=== PATIENT | female | born 1965 ===

== ENCOUNTER 2023-03-04 13:11 | Emergency (ER) | payer OTHER, SELFPAY ==
--- NOTE | ~2023-03-04 | CT_ITS ---
EXAMINATION: CT ABDOMEN AND PELVIS WITH CONTRAST CLINICAL INFORMATION: Bilateral flank and lower quadrant pain. COMPARISON: None available. TECHNIQUE: Multidetector volumetric images were obtained from the superior aspect of the liver through the pubic symphysis following administration 85 mL of Omnipaque 350 intravenous contrast. Sagittal and coronal reformatted images were obtained on the technologist's workstation. Oral contrast: No This CT examination was performed using dose optimization techniques as appropriate, variously including the following: *Automated exposure control *Adjustment of mA and/or kV according to patient size (this includes techniques or standardized protocols for targeted exams where dose is matched to indication/reason for exam; i.e. extremities or head) *Use of iterative reconstruction technique DLP: 747 mGy-cm FINDINGS: LUNG BASES: The visualized lung bases are unremarkable. LIVER, GALLBLADDER, AND BILIARY TREE: The liver is normal in size, shape, and attenuation. No focal hepatic lesion or biliary ductal dilatation is present. The gallbladder is unremarkable with no evidence of radiopaque gallstones, gallbladder wall thickening, or obvious pericholecystic inflammatory changes. PANCREAS: Unremarkable. SPLEEN: Unremarkable. ADRENAL GLANDS: Unremarkable. KIDNEYS AND URETERS: The kidneys are normal in size, shape, and attenuation. No hydronephrosis, hydroureter, or calculi seen. No perinephric stranding. BLADDER: Unremarkable. GASTROINTESTINAL TRACT: Distended stomach with no focal abnormality. Normal caliber small bowel. No obstruction. Normal appendix. No colonic wall thickening or inflammation. No free air or free fluid. ABDOMINAL WALL: No significant hernia is appreciated. LYMPH NODES: Normal. VASCULAR: Unremarkable. PELVIC VISCERA: The uterus and adnexa are unremarkable. OSSEOUS STRUCTURES: No acute or suspicious osseous abnormality. Mild degenerative changes in the hips. CT/CT abdomen pelvis w IV con IMPRESSION: No acute findings of the abdomen or pelvis. No inflammatory changes. Normal appendix. No hydronephrosis or nephrolithiasis. Fleischner guidelines were followed.
[2023-03-04 14:14] VITALS: BP 120/69; PULSE 63; RESP 16; TEMP 36.7; O2SAT 97; BMI 33.5
--- NOTE | 2023-03-04 14:15 | ED_ITS ---
HPI - General Adult General Chief complaint: Abdominal Pain Stated complaint: Kidney Pain Time Seen by Provider: 03/04/23 20:59 Source: patient Mode of arrival: ambulatory Limitations: no limitations History of Present Illness HPI narrative: Patient comes to the emergency room complaining of 2 months of bilateral flank pain and bilateral lower quadrant pain and suprapubic pain. Patient states the pain is constant and has been present for 2 months. Patient states that when she urinates it nieves. Patient denies very or chills, patient has been on Augmentin for 1 week. Related Data Allergies Allergy/AdvReac Type Severity Reaction Status Date / Time ciprofloxacin [From Cipro] Allergy Unknown Verified 03/04/23 14:18 gabapentin Allergy Unknown Verified 03/04/23 14:18 sulfamethoxazole Allergy Unknown Verified 03/04/23 14:18 [From Bactrim] topiramate Allergy Unknown Verified 03/04/23 14:18 trimethoprim [From Bactrim] Allergy Unknown Verified 03/04/23 14:18 Review of Systems Review of Systems: Constitutional : No Weight loss, No Fever, No Chills, No Night Sweats, No Fatigue, No Malaise ENT/Mouth : No Hearing loss, No Ear Pain, No Nasal Congestion, No Sinus Pain, No Hoarseness, No sore throat, No Rhinorrhea, No Swallowing Difficulty Eyes: No Eye Pain, No Swelling, No Redness, No Foreign Body, No Discharge, No Vision Changes Cardiovascular : No Chest Pain, No SOB, No Dyspnea on Exertion, No Orthopnea, No Edema, No Palpitations Respiratory : No Cough, No Sputum, No Wheezing, No Smoke Exposure, No Dyspnea Gastrointestinal : No Nausea, No Vomiting, No Diarrhea, No Constipation, complaining of chronic bilateral flank pain and chronic bilateral lower quadrant pain for 2 months Genitourinary : no irregular bleeding, complaining of chronic dysuria for 2 months, suprapubic pressure Musculoskeletal : No joint pain, No Myalgias, No Joint Swelling Skin : No Skin Lesions, No rash Neuro : No Weakness, No Numbness, No Paresthesias, No Loss of Consciousness, No Dizziness, No Headache Psych : No Anxiety/Panic, No Depression, No SI/HI/AH/VH, No Social Issues, Heme/Lymph: No Bruising, No Bleeding,No Lymphadenopathy Endocrine : No Polyuria, No Polydipsia, No Temperature Intolerance [facility] Social History Social History Advance Directives: No Advance Directives Information Provided: Yes Physical Exam ED Vital Signs: Vital Signs - 24 hr 03/04/23 14:14 Temperature 98.1 F Pulse Rate 63 Respiratory Rate 16 Blood Pressure 120/69 Pulse Oximetry 97 Oxygen Delivery Method Room Air BMI result Body Mass Index 33.5 Const Other: Appearance: Alert. Oriented X3. No acute distress. Eyes: Pupils equal, round and reactive to light. ENT: Pharynx normal. Neck: Normal inspection. Neck supple. No lymph nodes noted. No crepitus CVS: Normal heart rate and rhythm. Pulses normal. Normal S1 and S2 Respiratory: No respiratory distress. Breath sounds normal. No Wheezing. No rales Abdomen: Soft and nontender. No rigidity. No distention. No CVA tenderness Back: Pain is mostly above the hips in the posterior aspect Skin: Skin warm and dry. Normal skin color. Normal skin turgor. Extremities: No lower extremity edema. No Lacerations. No Rash Neuro: Oriented X 3. No motor deficit. No sensory deficit. Moving all extremities. No slurred speech. CN 2 through 12 grossly intact Psych: calm, cooperative, normal affect Course Course Course Narrative: This is an RME: Additional HPI, ROS, PE not included below will be deferred to primary provider. 57 year old female with a past medical history of nephrolithiasis presenting from pcp with a few weeks of fever, right flank pain, and dysuria. Patient currently taking augmentin without improvement. Expect from [facility] Plan- labs Medications Administered Discontinued Medications Generic Name Dose Route Start Last Admin Trade Name Freq PRN Reason Stop Dose Admin Iohexol 85 ml 03/04/23 21:45 03/04/23 21:46 Iohexol 350 Mg/Ml 100 Ml Infus..Btl IV 03/04/23 21:46 85 ml ONCE ONE Administration Medical Decision Making Medical Decision Making MDM Narrative: -my interpretation of labs, white blood cell count normal, electrolytes normal, LFTs normal, lipase normal, urinalysis negative -patient does have history of kidney stones, will go ahead and order a CT scan. Admission has been considered. -my interpretation of CT scan of the abdomen pelvis no ureterolithiasis, no obstruction, no obvious signs of diverticulitis -discussed with the patient that her chronic back pain of 2 months most likely musculoskeletal. Also discussed that if patient continues having dysuria, she may need a cystoscopy, instructed to follow-up with her PCP and may need referral to urology Differential Diagnosis Differential Diagnoses: The differential diagnosis associated with the presentation includes (Ureterolithiasis, nephrolithiasis, cystitis, py elonephritis) Admission/Observation Consideration of admission/observation: Escalation of care including admission/observation considered Lab Data MDM Lab Attestation statement: I reviewed the patient's lab results. 03/04/23 14:37 03/04/23 14:37 Labs: Lab Results 03/04/23 03/04/23 03/04/23 Range/Units 14:37 14:37 14:37 WBC 6.3 (4.8-10.8) X10*3/uL RBC 4.03 L (4.20-5.50) X10*6/uL Hgb 12.2 (12.0-16.0) g/dl Hct 36.8 L (37.0-47.0) % MCV 91.3 (80.0-98.0) fL MCH 30.3 (27.0-33.0) pg MCHC 33.2 (31.0-35.0) g/dl RDW 12.8 (11.0-16.0) % Plt Count 225 (160-400) X10*3/uL MPV 10.2 (9.4-12.3) fL Immature Gran % (Auto) 0.2 (0.0-0.4) % Neut % (Auto) 52.1 (45-73) % Lymph % (Auto) 34.4 (20-40) % [place] % (Auto) 7.8 (2-11) % Eos % (Auto) 4.9 H (0-4) % Baso % (Auto) 0.6 (0-2) % Lymph # (Auto) 2.2 (1.2-4.9) X10*3/uL [place] # (Auto) 0.5 (0.1-1.2) X10*3/uL Eos # (Auto) 0.3 (0.0-0.4) X10*3/uL Baso # (Auto) 0.0 (0.0-0.2) X10*3/uL Abs Immat Gran (auto) 0.01 (0.00-0.03) X10*3/uL Absolute Neuts (auto) 3.3 (2.0-8.3) x10*3/uL Absolute Nucleated RBC 0.000 (0.0-0.012) X10*3/uL Nucleated RBC % (auto) 0.0 (0.0-0.2) /100WBC Sodium 141 (135-145) mmol/L Potassium 4.1 (3.3-5.1) mmol/L Chloride 107 (96-108) mmol/L Carbon Dioxide 30 H (22-29) mmol/L Anion Gap 8 L (12-20) BUN 18 H (9-16) mg/dL Creatinine 0.70 (0.5-1.4) mg/dL Estim Creat Clear Calc 89.6 Estimated GFR > 60 Random Glucose 105 (60-115) mg/dL Lactic Acid 0.7 (0.5-2.0) mmol/L Calcium 9.5 (8.4-10.2) mg/dL Magnesium 2.3 (1.6-2.6) mg/dL Total Bilirubin 0.2 (0.0-1.0) mg/dL AST 19 (5-31) U/L ALT 18 (0-31) U/L Alkaline Phosphatase 90 (39-117) U/L Total Protein 7.4 (6.5-8.0) g/dL Albumin 4.2 (3.5-5.0) g/dL Lipase 20 (8-78) U/L Urine Color Urine Appearance Urine pH (5.0-9.0) Ur Specific [place] (1.005-1.025) Urine Protein (Neg-Trace) mg/dL Urine Glucose (UA) (Negative) mg/dL Urine Ketones (Negative) mg/dL Urine Blood (Negative) Urine Nitrite (Negative) Ur Leukocyte Esterase (Negative) 03/04/23 Range/Units 14:37 WBC (4.8-10.8) X10*3/uL RBC (4.20-5.50) X10*6/uL Hgb (12.0-16.0) g/dl Hct (37.0-47.0) % MCV (80.0-98.0) fL MCH (27.0-33.0) pg MCHC (31.0-35.0) g/dl RDW (11.0-16.0) % Plt Count (160-400) X10*3/uL MPV (9.4-12.3) fL Immature Gran % (Auto) (0.0-0.4) % Neut % (Auto) (45-73) % Lymph % (Auto) (20-40) % [place] % (Auto) (2-11) % Eos % (Auto) (0-4) % Baso % (Auto) (0-2) % Lymph # (Auto) (1.2-4.9) X10*3/uL [place] # (Auto) (0.1-1.2) X10*3/uL Eos # (Auto) (0.0-0.4) X10*3/uL Baso # (Auto) (0.0-0.2) X10*3/uL Abs Immat Gran (auto) (0.00-0.03) X10*3/uL Absolute Neuts (auto) (2.0-8.3) x10*3/uL Absolute Nucleated RBC (0.0-0.012) X10*3/uL Nucleated RBC % (auto) (0.0-0.2) /100WBC Sodium (135-145) mmol/L Potassium (3.3-5.1) mmol/L Chloride (96-108) mmol/L Carbon Dioxide (22-29) mmol/L Anion Gap (12-20) BUN (9-16) mg/dL Creatinine (0.5-1.4) mg/dL Estim Creat Clear Calc Estimated GFR Random Glucose (60-115) mg/dL Lactic Acid (0.5-2.0) mmol/L Calcium (8.4-10.2) mg/dL Magnesium (1.6-2.6) mg/dL Total Bilirubin (0.0-1.0) mg/dL AST (5-31) U/L ALT (0-31) U/L Alkaline Phosphatase (39-117) U/L Total Protein (6.5-8.0) g/dL Albumin (3.5-5.0) g/dL Lipase (8-78) U/L Urine Color Yellow Urine Appearance Clear Urine pH 5.5 (5.0-9.0) Ur Specific [place] 1.010 (1.005-1.025) Urine Protein Negative (Neg-Trace) mg/dL Urine Glucose (UA) Negative (Negative) mg/dL Urine Ketones Negative (Negative) mg/dL Urine Blood Negative (Negative) Urine Nitrite Negative (Negative) Ur Leukocyte Esterase Negative (Negative) Independent Interpretation I performed an independent interpretation of an: CT Scan Radiology Impression Discussion of test interpretation with radiology: I have reviewed the radiologist's reading. Radiologist Impression: FINDINGS: LUNG BASES: The visualized lung bases are unremarkable.? LIVER, GALLBLADDER, AND BILIARY TREE: The liver is normal in size, shape, and attenuation. No focal hepatic lesion or biliary ductal dilatation is present. The gallbladder is unremarkable with no evidence of radiopaque gallstones, gallbladder wall thickening, or obvious pericholecystic inflammatory changes.? PANCREAS: Unremarkable.? SPLEEN: Unremarkable.? ADRENAL GLANDS: Unremarkable.? KIDNEYS AND URETERS: The kidneys are normal in size, shape, and attenuation. No hydronephrosis, hydroureter, or calculi seen. No perinephric stranding. ? BLADDER: Unremarkable.? GASTROINTESTINAL TRACT: Distended stomach with no focal abnormality. Normal caliber small bowel. No obstruction. Normal appendix. No colonic wall thickening or inflammation. No free air or free fluid.? ABDOMINAL WALL: No significant hernia is appreciated.? LYMPH NODES: Normal. VASCULAR: Unremarkable. PELVIC VISCERA: The uterus and adnexa are unremarkable.? OSSEOUS STRUCTURES: No acute or suspicious osseous abnormality. Mild degenerative changes in the hips.? CT/CT abdomen pelvis w IV con IMPRESSION: No acute findings of the abdomen or pelvis. No inflammatory changes. Normal appendix. No hydronephrosis or nephrolithiasis. ? Fleischner guidelines were followed. Critical Care Time Critical Care Time Critical Care Time: Yes Total Critical Care Time: 45 Attestation: I have personally provided critical care time. Time includes review of lab data, radiology results, discussion with consultants, and monitoring for potential decompensation. Intervention performed as documented. Discharge Plan Discharge Clinical Impression: Chronic lower back pain, Chronic abdominal pain Patient Disposition: Home, Self-Care Instructions: Abdominal Pain (ED), Lower Back Exercises (ED) Additional Instructions: Please follow-up with your primary care physician tomorrow. If you have any worsening or new symptoms, please return to the emergency room or call 911
[2023-03-04 14:45] LABS: MANUAL DIFF FLAG NO
[2023-03-04 14:48] LABS: Appearance Urine Clear; Basophils Percent Auto 0.6 % (0-2); Color Urine Yellow; Eosinophils Absolute Auto 0.3 X10*3/uL (0.0-0.4); Eosinophils Percent Auto 4.9 % (0-4); Glucose Urine UA Negative (Negative); Hematocrit 36.8 % (37.0-47.0); Hemoglobin 12.2 g/dl (12.0-16.0); Imm Gran Abs Auto 0.01 X10*3/uL (0.00-0.03); Imm Gran Pct Auto 0.2 % (0.0-0.4); Leukocyte Esterase Urine Negative (Negative); Lymphocytes Absolute Auto 2.2 X10*3/uL (1.2-4.9); Lymphocytes Percent Auto 34.4 % (20-40); Mean Corpuscular HGB Conc 33.2 g/dl (31.0-35.0); Mean Corpuscular Hemoglobin 30.3 pg (27.0-33.0); Mean Corpuscular Volume 91.3 fL (80.0-98.0); Mean Platelet Volume 10.2 fL (9.4-12.3); Monocytes Absolute Auto 0.5 X10*3/uL (0.1-1.2); Monocytes Percent Auto 7.8 % (2-11); Neutrophils Absolute Auto 3.3 x10*3/uL (2.0-8.3); Neutrophils Percent Auto 52.1 % (45-73); Nitrite Urine Negative (Negative); PH 5.5 (5.0-9.0); Platelet Count 225 X10*3/uL (160-400); Red Blood Count 4.03 X10*6/uL (4.20-5.50); Red Cell Distribution Width 12.8 % (11.0-16.0); Urine Blood Negative (Negative); Urine Ketones Negative (Negative); Urine Protein Negative (Neg-Trace); White Blood Count 6.3 X10*3/uL (4.8-10.8)
[2023-03-04 14:57] LABS: Lactic Acid 0.7 mmol/L (0.5-2.0)
[2023-03-04 15:02] LABS: Alanine Aminotransferase 18 U/L (0-31); Albumin Level 4.2 g/dL (3.5-5.0); Alkaline Phosphatase 90 U/L (39-117); Anion Gap 8 (12-20); Aspartate Amino Transferase 19 U/L (5-31); Bilirubin Total 0.2 mg/dL (0.0-1.0); Blood Urea Nitrogen 18 mg/dL (9-16); Calcium 9.5 mg/dL (8.4-10.2); Carbon Dioxide 30 mmol/L (22-29); Chloride 107 mmol/L (96-108); Creatinine Clr Calc Pharmacy 89.6; Estimated Glomerular Filt Rate > 60; Glucose Random 105 mg/dL (60-115); Lipase 20 U/L (8-78); Magnesium 2.3 mg/dL (1.6-2.6); Potassium 4.1 mmol/L (3.3-5.1); Sodium 141 mmol/L (135-145); Total Protein 7.4 g/dL (6.5-8.0)
[2023-03-04] MEDS: iohexoL 350 MG/ML 100 ML INFUS..BTL 85 ML IV (21:46)
[2023-03-04 22:34] VITALS: BP 117/72; PULSE 63; RESP 18; TEMP 36.7; O2SAT 97
== END 2023-03-04 22:55 | disposition home or self-care (01) ==
PROVIDERS: Physician Assistant; Emergency Provider Emergency Medicine
DX: G89.29 Other chronic pain (principal); M54.50 Low back pain, unspecified; R10.32 Left lower quadrant pain; R10.31 Right lower quadrant pain
CPT/HCPCS: 36415; 74177; 80053; 81003; 83605; 83690; 83735; 85025; 87040; 99283; 99284; Q9967

== ENCOUNTER 2023-05-26 21:39 | Emergency (ER) | payer OTHER, SELFPAY ==
--- NOTE | ~2023-05-26 | XR_ITS ---
EXAMINATION: XR CHEST CLINICAL INFORMATION: Pain. COMPARISON: None available. TECHNIQUE: 2 views of the chest were obtained. FINDINGS: No significant abnormality is noted involving the heart, lungs, mediastinum, bony thorax or soft tissues. XR/XR chest 2V IMPRESSION: Unremarkable examination.
[2023-05-26 21:47] VITALS: BP 135/82; PULSE 71; RESP 16; TEMP 36.7; O2SAT 97; BMI 35.0
[2023-05-26 22:40] LABS: Influenza A PCR NEGATIVE (Negative); Influenza B PCR NEGATIVE (Negative); Resp Syncy Virus RNA Qual PCR NEGATIVE (Negative); SARS COV2 PCR INHOUSE NEGATIVE (Negative)
[2023-05-27] VITALS: BP 128/77; PULSE 82; RESP 20; TEMP 36.8; O2SAT 98
--- NOTE | 2023-05-27 00:15 | ED.GENADULT ---
HPI - General Adult General Chief complaint: Upper Respiratory Symptoms Stated complaint: asthma, congestion,body aches Time Seen by Provider: 05/27/23 00:05 Source: patient Mode of arrival: ambulatory Limitations: no limitations History of Present Illness HPI narrative: 57 year old female with PMH of asthma and pneumonia over 1 year ago presents for chest congestion and URI symptoms x2 days. She states she has had chest congestion/pressure yesterday and pain with inspiration. She states today she now has a sore throat, body aches, chills, sinus pressure, and otalgia. She denies cough or vomiting and diarrhea. 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 She has used her albuterol inhaler 4 times today without relief, she infrequently uses it at baseline. She has a nebulizer machine at home but has not used it. Related Data Previous Rx's Medication Instructions Recorded azithromycin 250 mg tablet See Rx Instructions PO .COMPLEX #6 05/27/23 tabs prednisone 20 mg tablet 40 mg (2 x 20 mg) PO DAILY #10 tabs 05/27/23 Allergies Allergy/AdvReac Type Severity Reaction Status Date / Time ciprofloxacin [From Cipro] Allergy Unknown Verified 05/26/23 21:49 gabapentin Allergy Unknown Verified 05/26/23 21:49 sulfamethoxazole Allergy Unknown Verified 05/26/23 21:49 [From Bactrim] topiramate Allergy Unknown Verified 05/26/23 21:49 trimethoprim [From Bactrim] Allergy Unknown Verified 05/26/23 21:49 Review of Systems Constitutional: Constitutional: Reports chills, Reports fatigue, Denies fever(s), Reports headache(s) and Reports malaise ENT: Reports otalgia, Reports headache(s), Reports nasal discharge, Reports sinus pressure and Reports sore throat Cardiovascular: Cardiovascular: Reports chest pain (chest wall pain), Denies lightheadedness, Denies palpitations and Reports dyspnea Respiratory: Respiratory: Reports chest congestion, Denies cough, Reports excessive phlegm production, Reports dyspnea and Denies wheezing Gastrointestinal: Gastrointestinal: Denies abdominal pain, Denies diarrhea, Reports nausea and Denies vomiting Neurologic: Reports headache(s) Endocrine: Endocrine: Reports fatigue and Denies palpitations Allergic/Immunologic: Allergic/Immunologic: Denies wheezing PMFSH Social History Social History Smoked in Last 30 Days: No Use of substances other than those prescribed or required for medical reasons: No Advance Directives: No Advance Directives Information Provided: Yes Physical Exam ED Vital Signs: Vital Signs - 24 hr 05/26/23 21:47 05/27/23 00:00 Temperature 98.1 F 98.2 F Pulse Rate 71 82 Respiratory Rate 16 20 Blood Pressure 135/82 128/77 Pulse Oximetry 97 98 Oxygen Delivery Method Room Air Room Air BMI result Body Mass Index 35.0 Const General: cooperative and no acute distress Orientation/consciousness: patient oriented x3 Limitations: no limitations HENMT Head: Yes normocephalic and Yes atraumatic Ears: TM's normal bilaterally and EAC's normal General nose exam: Normal external nose present, Normal nares present and Normal nasal mucous membranes and turbinates present Face and sinus: Yes sinus tenderness Mouth: oropharynx normal and moist mucous membranes Throat: Yes tonsils normal, Yes uvula midline and Yes posterior oropharynx abnormal (erythematous) Eyes Conjunctivae: conjunctivae normal Sclerae: sclerae normal Corneas: corneas normal Neck Neck: Yes no lymphadenopathy Resp Effort & Inspection: normal respiratory effort and able to speak in complete sentences Auscultation: clear to auscultation bilaterally Cardio Rate: regular rate Rhythm: regular rhythm GI Inspection: Yes normal to inspection Palpation (GI): Soft to palpation, not firm, nontender, no guarding and not rigid Neuro General: patient oriented x3 Medical Decision Making Medical Decision Making [facility] Narrative: 57-year-old female with past medical history significant for asthma presents for evaluation of respiratory symptoms over the last few days. She is negative for flu, COVID. She would like a strep test and chest x-ray. Though she has clear lungs of still well signs, we will get a chest x-ray per her request. There is no evidence of sepsis Differential Diagnosis Differential Diagnoses: The differential diagnosis associated with the presentation includes viral syndrome influenza covid-19 strep pharyngitis pneumonia bronchitis Lab Data Labs: Lab Results 05/26/23 05/27/23 Range/Units 21:55 01:11 Influenza Type A (PCR) NEGATIVE (Negative) Influenza Type B (PCR) NEGATIVE (Negative) RSV RNA Qual (PCR) NEGATIVE (Negative) SARS-CoV-2 RNA (RT-PCR) NEGATIVE (Negative) S. pyogenes GrpA SANDRA Negative (Negative) Independent Interpretation I performed an independent interpretation of an: Plain X-Ray (No infiltrates) Radiology Impression Discussion of test interpretation with radiology: I have reviewed the radiologist's reading. Radiologist Impression: Unremarkable chest x-ray Discharge Plan Discharge Clinical Impression: Upper respiratory infection Patient Disposition: Home, Self-Care Instructions: Upper Respiratory Infection (ED) Additional Instructions: Your viral swabs and strep swabs were negative. Your chest x-ray did not show any evidence of pneumonia. Take azithromycin and prednisone as directed for upper respiratory infection. Follow-up with your primary doctor Prescriptions: New azithromycin 250 mg tablet See Rx Instructions .ROUTE .COMPLEX Qty: 6 0RF Rx Instructions: For 250 mg dose pack: take 500 mg today (day 1), then 250 mg for 4 days (days 2-5) prednisone 20 mg tablet 40 mg PO DAILY Qty: 10 0RF
[2023-05-27 01:23] LABS: IDNOW Serial# 08D9AD1C; Strep A Nucleic Acid Negative (Negative)
== END 2023-05-27 02:33 | disposition home or self-care (01) ==
PROVIDERS: Physician Assistant; Emergency Provider Student in an Organized Health Care Education/Training Program
DX: J06.9 Acute upper respiratory infection, unspecified (principal); J02.9 Acute pharyngitis, unspecified; J45.909 Unspecified asthma, uncomplicated; M79.10 Myalgia, unspecified site; Z20.822 Contact with and (suspected) exposure to COVID-19; Z20.828 Contact with and (suspected) exposure to other viral communicable diseases; Z79.899 Other long term (current) drug therapy
CPT/HCPCS: 0241U; 71046; 87651; 99283; 99284

== ENCOUNTER 2023-12-06 14:11 | Emergency (ER) | payer OTHER, SELFPAY ==
--- NOTE | ~2023-12-06 | CT_ITS ---
EXAMINATION: CT ABDOMEN AND PELVIS WITHOUT CONTRAST CLINICAL INFORMATION: Dysuria/hematuria with abdominal pain and back pain COMPARISON: CT abdomen pelvis 03/04/2023 TECHNIQUE: Multidetector volumetric imaging was performed from the superior aspect of the liver through the pubic symphysis. Sagittal and coronal reformatted images were obtained on the technologist's workstation. This CT examination was performed using dose optimization techniques as appropriate, variously including the following: *Automated exposure control *Adjustment of mA and/or kV according to patient size (this includes techniques or standardized protocols for targeted exams where dose is matched to indication/reason for exam; i.e. extremities or head) *Use of iterative reconstruction technique DLP: 932 mGy-cm FINDINGS: LUNG BASES: The visualized lung bases are unremarkable. LIVER, GALLBLADDER, AND BILIARY TREE: The liver is normal in size, shape, and attenuation. No focal hepatic lesion or biliary ductal dilatation is present. A tiny punctate calcifications seen near the shakila hepatis possibly a granuloma (3:24). The gallbladder is unremarkable with no evidence of radiopaque gallstones, gallbladder wall thickening, or obvious pericholecystic inflammatory changes. PANCREAS: Unremarkable. SPLEEN: Unremarkable. ADRENAL GLANDS: Unremarkable. KIDNEYS AND URETERS: The kidneys are normal in size, shape, and attenuation. No hydronephrosis, hydroureter, or calculi seen. No perinephric stranding. BLADDER: Unremarkable. GASTROINTESTINAL TRACT: Again seen are scattered colonic diverticula. In the mid sigmoid colon there is an area of pericolonic inflammation and sigmoid thickening consistent with uncomplicated acute sigmoid diverticulitis with no extraluminal air or fluid collections. The small and large bowel are otherwise unremarkable. The appendix is unremarkable. ABDOMINAL WALL: No significant hernia is appreciated. LYMPH NODES: No retroperitoneal lymphadenopathy. VASCULAR: Unremarkable. PELVIC VISCERA: The uterus and adnexa are unremarkable aside from the presence of a tiny punctate calcification in the region of the endometrium in the lower uterine segment.. No free fluid is present in the pelvis OSSEOUS STRUCTURES: Unremarkable. CT/CT abdomen pelvis wo IV con IMPRESSION: Uncomplicated acute sigmoid diverticulitis. Fleischner guidelines were followed.
[2023-12-06 14:24] VITALS: BP 108/70; PULSE 95; RESP 18; TEMP 36.6; O2SAT 95; BMI 35.1
--- NOTE | 2023-12-06 14:28 | ED_ITS ---
HPI - General Adult General Chief complaint: Urogenital-Female Stated complaint: Abdominal Pain Radiating to Back Time Seen by Provider: 12/06/23 17:22 Source: patient Mode of arrival: ambulatory Limitations: no limitations History of Present Illness HPI narrative: 58 yold female with pmh of asthma, kidney stones, and pneumonia presents to the ED for left lower abdominal pain, increase urinary freqeuncy and hematuria. patient states no other complaints. Related Data Previous Rx's ?Medication ?Instructions ?Recorded azithromycin 250 mg tablet See Rx Instructions PO .COMPLEX #6 05/27/23 tabs prednisone 20 mg tablet 40 mg (2 x 20 mg) PO DAILY #10 tabs 05/27/23 amoxicillin 875 mg-potassium 1 tab PO Q12H 5 days #10 tabs 12/06/23 clavulanate 125 mg tablet naproxen 500 mg tablet 500 mg PO BID PRN pain 7 days #14 12/06/23 tabs Allergies Allergy/AdvReac Type Severity Reaction Status Date / Time ciprofloxacin [From Cipro] Allergy Unknown Verified 12/06/23 14:25 gabapentin Allergy Unknown Verified 12/06/23 14:25 sulfamethoxazole Allergy Unknown Verified 12/06/23 14:25 [From Bactrim] topiramate Allergy Unknown Verified 12/06/23 14:25 trimethoprim [From Bactrim] Allergy Unknown Verified 12/06/23 14:25 Review of Systems 2 Review of Systems: abdomnal pain, increae urinary frequency, hematuria, and dysuria Yes all other systems are reviewed and are negative PMFSH Social History Social History Advance Directives: No Advance Directives Information Provided: No Do you have a plan to hurt others: No Plan Physical Exam ED Vital Signs: Vital Signs - 24 hr 12/06/23 14:24 Temperature 97.8 F Pulse Rate 95 Respiratory Rate 18 Blood Pressure 108/70 Pulse Oximetry 95 Oxygen Delivery Method Room Air BMI result Body Mass Index 35.1 Const General: cooperative, healthy appearing, comfortable, no acute distress, well developed, alert, awake and Physically active Orientation/consciousness: oriented to person, oriented to place, oriented to time and patient oriented x3 HENMT Head: Yes normal to inspection, Yes No palpable skull fracture present, Yes normocephalic and Yes atraumatic Eyes General: appearance normal, both eyes and all related structures Neck Neck: Yes normal visual inspection, Yes full ROM, Yes no lymphadenopathy, Yes no meningeal signs, Yes trachea midline, Yes supple, No anterior neck swelling and No tender Chest Chest palpation & inspection: normal inspection of the chest and normal palpation of entire chest wall Resp Effort & Inspection: normal respiratory effort and able to speak in complete sentences Auscultation: clear to auscultation bilaterally Cardio Jugular venous distension: no JVD Heart sounds: S1 normal heart sound present and S2 normal heart sound present GI Inspection: Yes normal to inspection Palpation (GI): Soft to palpation, not firm, Tenderness to palpation present (GI) in the LLQ, no guarding and not rigid General: Yes no CVA tenderness Back/Spine/Pelvis Back: no CVA tenderness and No back tenderness Skin General skin exam: no rashes or lesions noted, elasticity normal and turgor normal Neuro General: oriented to person, oriented to place, oriented to time, patient oriented x3, gait normal, tone normal, moves all extremities, Normal light touch and pain sensation, no meningeal signs, no focal motor deficits, CN's II-XI intact bilaterally and normal sensation to monofilament Extrem General: Yes normal to inspection, Yes full ROM and Yes capillary refill normal Psych Appearance: grossly normal, well kempt and not disheveled Course Course Course Narrative: RME: Triage done by NICKY Prakash 58-year-old female presents to ED for lower abdominal pain with dysuria and hematuria. Patient has history of kidney stones. Positive for left lower quadrant tenderness with left CVA flank. Labs abdominal CT scan UA ordered Medical Decision Making Medical Decision Making MDM Narrative: 58-year-old female presents to ED for back pain, left lower quadrant abdominal pain, increased urinary frequency and slight hematuria. UA came back negative for UTI or blood. Slight elevated white blood cell count. CT scan came back positive for diverticulitis. Patient denied any distress. Patient can be discharged with oral antibiotics. Patient explained worrisome sign and informed to return to the ED if she has them. Differential Diagnosis Differential Diagnoses: The differential diagnosis associated with the presentation includes (Kidney stones, UTI, diverticulitis,) Admission/Observation Consideration of admission/observation: Escalation of care including admission/observation considered Lab Data [facility] Lab Attestation statement: I reviewed the patient's lab results. 12/06/23 14:55 12/06/23 14:55 Labs: Lab Results 05/14/24 Range/Units 14:55 WBC 12.8 H (4.8-10.8) X10*3/uL RBC 3.98 L (4.20-5.50) X10*6/uL Hgb 12.1 (12.0-16.0) g/dl Hct 36.0 L (37.0-47.0) % MCV 90.5 (80.0-98.0) fL MCH 30.4 (27.0-33.0) pg MCHC 33.6 (31.0-35.0) g/dl RDW 12.5 (11.0-16.0) % Plt Count 236 (160-400) X10*3/uL MPV 10.0 (9.4-12.3) fL Immature Gran % (Auto) 0.3 (0.0-0.4) % Neut % (Auto) 75.1 H (45-73) % Lymph % (Auto) 15.4 L (20-40) % [place] % (Auto) 6.9 (2-11) % Eos % (Auto) 1.9 (0-4) % Baso % (Auto) 0.4 (0-2) % Lymph # (Auto) 2.0 (1.2-4.9) X10*3/uL [place] # (Auto) 0.9 (0.1-1.2) X10*3/uL Eos # (Auto) 0.2 (0.0-0.4) X10*3/uL Baso # (Auto) 0.1 (0.0-0.2) X10*3/uL Abs Immat Gran (auto) 0.04 H (0.00-0.03) X10*3/uL Absolute Neuts (auto) 9.6 H (2.0-8.3) x10*3/uL Absolute Nucleated RBC 0.000 (0.0-0.012) X10*3/uL Nucleated RBC % (auto) 0.0 (0.0-0.2) /100WBC Sodium 139 (135-145) mmol/L Potassium 3.9 (3.3-5.1) mmol/L Chloride 103 (96-108) mmol/L Carbon Dioxide 26 (22-29) mmol/L Anion Gap 14 (12-20) BUN 16 (9-16) mg/dL Creatinine 0.70 (0.5-1.4) mg/dL Estim Creat Clear Calc 90.8 Estimated GFR > 60 Random Glucose 104 (60-115) mg/dL Calcium 9.5 (8.4-10.2) mg/dL Total Bilirubin 0.4 (0.0-1.0) mg/dL AST 19 (5-31) U/L ALT 22 (0-31) U/L Alkaline Phosphatase 99 (39-117) U/L Total Protein 7.6 (6.5-8.0) g/dL Albumin 4.2 (3.5-5.0) g/dL Lipase 14 (8-78) U/L Beta HCG, Quant < 2 mIU/mL Urine Color Yellow Urine Appearance Clear Urine pH 5.5 (5.0-9.0) Ur Specific [place] >= 1.030 H (1.005-1.025) Urine Protein Negative (Neg-Trace) mg/dL Urine Glucose (UA) Negative (Negative) mg/dL Urine Ketones Trace (Negative) mg/dL Urine Blood Negative (Negative) Urine Nitrite Negative (Negative) Ur Leukocyte Esterase Negative (Negative) Independent Interpretation I performed an independent interpretation of an: CT Scan Radiology Impression Discussion of test interpretation with radiology: I have reviewed the radiologist's reading. Independent Historian Clinical information obtained from an independent historian. History obtained from or confirmed by: Other (Patient) External Record Review External record reviewed: Other (Prior visits) Prescription Management I considered prescription management with: Pain Medication and Antibiotic Discharge Plan Discharge Clinical Impression: Diverticulitis Patient Disposition: Home, Self-Care Instructions: Diverticulitis (ED), Diverticulitis Diet (ED) Additional Instructions: Recommend follow-up with your primary care provider. Return to ED for worsening abdominal pain, nausea, vomiting, fever chills, flank pain, dysuria, hematuria, or any other concerning symptoms. Recommend follow-up with the primary care provider. CT/CT abdomen pelvis wo IV con IMPRESSION: Uncomplicated acute sigmoid diverticulitis. Fleischner guidelines were followed. Prescriptions: New amoxicillin-pot clavulanate 875-125 mg tablet 1 tab PO Q12H 5 Days Qty: 10 0RF naproxen 500 mg tablet 500 mg PO BID PRN (Reason: pain) 7 Days Qty: 14 0RF No Action azithromycin 250 mg tablet See Rx Instructions .ROUTE .COMPLEX Qty: 6 0RF Rx Instructions: For 250 mg dose pack: take 500 mg today (day 1), then 250 mg for 4 days (days 2-5) prednisone 20 mg tablet 40 mg PO DAILY Qty: 10 0RF Stand Alone Forms: Work/School Release Interventions: ED Discharge Assessment Last Done: 12/06/23 18:13 Discharge Date/Time: 12/06/23 18:14 Print Language: Czech
[2023-12-06 14:58] LABS: MANUAL DIFF FLAG NO
[2023-12-06 15:02] LABS: Appearance Urine Clear; Basophils Absolute Auto 0.1 X10*3/uL (0.0-0.2); Basophils Percent Auto 0.4 % (0-2); Color Urine Yellow; Eosinophils Absolute Auto 0.2 X10*3/uL (0.0-0.4); Eosinophils Percent Auto 1.9 % (0-4); Glucose Urine UA Negative (Negative); Hemoglobin 12.1 g/dl (12.0-16.0); Imm Gran Abs Auto 0.04 X10*3/uL (0.00-0.03); Imm Gran Pct Auto 0.3 % (0.0-0.4); Leukocyte Esterase Urine Negative (Negative); Lymphocytes Percent Auto 15.4 % (20-40); Mean Corpuscular HGB Conc 33.6 g/dl (31.0-35.0); Mean Corpuscular Hemoglobin 30.4 pg (27.0-33.0); Mean Corpuscular Volume 90.5 fL (80.0-98.0); Monocytes Absolute Auto 0.9 X10*3/uL (0.1-1.2); Monocytes Percent Auto 6.9 % (2-11); Neutrophils Absolute Auto 9.6 x10*3/uL (2.0-8.3); Neutrophils Percent Auto 75.1 % (45-73); Nitrite Urine Negative (Negative); PH 5.5 (5.0-9.0); Platelet Count 236 X10*3/uL (160-400); Red Blood Count 3.98 X10*6/uL (4.20-5.50); Red Cell Distribution Width 12.5 % (11.0-16.0); Specific Gravity - Urine >= 1.030 (1.005-1.025); Urine Blood Negative (Negative); Urine Ketones Trace mg/dL (Negative); Urine Protein Negative (Neg-Trace); White Blood Count 12.8 X10*3/uL (4.8-10.8)
[2023-12-06 15:21] LABS: Alanine Aminotransferase 22 U/L (0-31); Albumin Level 4.2 g/dL (3.5-5.0); Alkaline Phosphatase 99 U/L (39-117); Anion Gap 14 (12-20); Aspartate Amino Transferase 19 U/L (5-31); Bilirubin Total 0.4 mg/dL (0.0-1.0); Blood Urea Nitrogen 16 mg/dL (9-16); Calcium 9.5 mg/dL (8.4-10.2); Carbon Dioxide 26 mmol/L (22-29); Chloride 103 mmol/L (96-108); Creatinine Clr Calc Pharmacy 90.8; Estimated Glomerular Filt Rate > 60; Glucose Random 104 mg/dL (60-115); Lipase 14 U/L (8-78); Potassium 3.9 mmol/L (3.3-5.1); Sodium 139 mmol/L (135-145); Total Protein 7.6 g/dL (6.5-8.0)
[2023-12-06 15:24] LABS: HCG Quantitative < 2 mIU/mL
[2023-12-06 18:13] VITALS: BP 108/70; PULSE 95; RESP 18; TEMP 36.6; O2SAT 95
== END 2023-12-06 18:14 | disposition home or self-care (01) ==
PROVIDERS: Physician Assistant; Emergency Provider Emergency Medicine
DX: K57.92 Diverticulitis of intestine, part unspecified, without perforation or abscess without bleeding (principal); R10.32 Left lower quadrant pain; R30.0 Dysuria; R31.9 Hematuria, unspecified; M54.9 Dorsalgia, unspecified; R35.0 Frequency of micturition
CPT/HCPCS: 36415; 74176; 80053; 81003; 83690; 84702; 85025; 99282; 99284

== ENCOUNTER 2023-12-11 13:17 | Emergency (ER) | payer OTHER, SELFPAY ==
--- NOTE | ~2023-12-11 | CT_ITS ---
EXAMINATION: CT ABDOMEN AND PELVIS WITH CONTRAST CLINICAL INFORMATION: Pain. COMPARISON: 12/06/2023 TECHNIQUE: Multidetector volumetric images were obtained from the superior aspect of the liver through the pubic symphysis following administration 85 mL of Omnipaque 350 intravenous contrast. Sagittal and coronal reformatted images were obtained on the technologist's workstation. Oral contrast: No This CT examination was performed using dose optimization techniques as appropriate, variously including the following: *Automated exposure control *Adjustment of mA and/or kV according to patient size (this includes techniques or standardized protocols for targeted exams where dose is matched to indication/reason for exam; i.e. extremities or head) *Use of iterative reconstruction technique DLP: 815 mGy-cm FINDINGS: LUNG BASES: The visualized lung bases are unremarkable. LIVER, GALLBLADDER, AND BILIARY TREE: The liver is normal in size, shape, and attenuation. No focal hepatic lesion or biliary ductal dilatation is present. The gallbladder is unremarkable with no evidence of radiopaque gallstones, gallbladder wall thickening, or obvious pericholecystic inflammatory changes. PANCREAS: Unremarkable. SPLEEN: Unremarkable. ADRENAL GLANDS: Unremarkable. KIDNEYS AND URETERS: The kidneys are normal in size, shape, and attenuation. No hydronephrosis, hydroureter, or calculi seen. No perinephric stranding. There is a subcentimeter cyst lower pole left kidney. BLADDER: Unremarkable. GASTROINTESTINAL TRACT: There are scattered diverticula throughout the colon. There is appears to be mild infiltrative change along a single diverticula of the proximal sigmoid colon. The appendix is visualized and is within normal limits. ABDOMINAL WALL: No significant hernia is appreciated. LYMPH NODES: Normal. VASCULAR: Unremarkable. PELVIC VISCERA: Unremarkable. OSSEOUS STRUCTURES: Unremarkable. CT/CT abdomen pelvis w IV con IMPRESSION: Mild diverticulitis of the proximal sigmoid colon. Fleischner guidelines were followed.
--- NOTE | 2023-12-11 13:30 | ED_ITS ---
HPI - General Adult General Chief complaint: Abdominal Pain Stated complaint: diverticulitis Time Seen by Provider: 12/11/23 23:43 History of Present Illness HPI narrative: Patient is a 58-year-old female with a history of diverticulitis she was seen 5 days ago was started on Augmentin CT scan at that time showed evidence for diverticulitis. However did not show any acute evidence of abscess no perforation. Patient came back because she had similar pain. No fever no chills no diaphoresis. She is from home. Related Data Previous Rx's ?Medication ?Instructions ?Recorded azithromycin 250 mg tablet See Rx Instructions PO .COMPLEX #6 05/27/23 tabs prednisone 20 mg tablet 40 mg (2 x 20 mg) PO DAILY #10 tabs 05/27/23 amoxicillin 875 mg-potassium 1 tab PO Q12H 5 days #10 tabs 12/06/23 clavulanate 125 mg tablet naproxen 500 mg tablet 500 mg PO BID PRN pain 7 days #14 12/06/23 tabs amoxicillin 875 mg-potassium 1 tab PO BID #10 tabs 12/12/23 clavulanate 125 mg tablet Allergies Allergy/AdvReac Type Severity Reaction Status Date / Time ciprofloxacin [From Cipro] Allergy Unknown Verified 12/11/23 13:33 gabapentin Allergy Unknown Verified 12/11/23 13:33 sulfamethoxazole Allergy Unknown Verified 12/11/23 13:33 [From Bactrim] topiramate Allergy Unknown Verified 12/11/23 13:33 trimethoprim [From Bactrim] Allergy Unknown Verified 12/11/23 13:33 Review of Systems 2 Review of Systems: Positive abdominal pain Yes all other systems are reviewed and are negative [facility] Past Medical History Attestation statement: The following information was validated with the patient. Social History Social History Smoked in Last 30 Days: No Use of substances other than those prescribed or required for medical reasons: No Advance Directives: No Advance Directives Information Provided: No Patient : No Physical Exam ED Vital Signs: Vital Signs - 24 hr 12/11/23 13:31 12/11/23 20:01 12/11/23 23:00 Temperature 97.7 F 97 F 97.2 F Pulse Rate 64 66 80 Respiratory Rate 18 20 17 Blood Pressure 142/70 H 130/86 134/77 Pulse Oximetry 97 97 97 Oxygen Delivery Method Room Air Room Air Room Air 12/12/23 00:18 12/12/23 02:45 Temperature 98.3 F 98.1 F Pulse Rate 64 58 Respiratory Rate 16 16 Blood Pressure 110/55 L 105/55 L Pulse Oximetry 97 97 Oxygen Delivery Method Room Air Room Air BMI result Body Mass Index 32.8 Appearance: Alert. Oriented X3. No acute distress. Eyes: Pupils equal, round and reactive to light. ENT: Pharynx normal. Neck: Normal inspection. Neck supple. No lymph nodes noted. No crepitus CVS: Normal heart rate and rhythm. Pulses normal. Normal S1 and S2 Respiratory: No respiratory distress. Breath sounds normal. No Wheezing. No rales Abdomen: Soft and nontender. No rigidity. No distention. good BS x4 Skin: Skin warm and dry. Normal skin color. Normal skin turgor. Extremities: No lower extremity edema. Neurovascular intact to all extremities. No Lacerations. No Rash Neuro: Oriented X 3. No motor deficit. No sensory deficit. Moving all extermities. No slurred speech Course Course Course Narrative: This is an RME performed by Radha Carrington CNP: Additional HPI, ROS, PE not included below will be deferred to primary provider. Patient is a 58-year-old female presents emergency department for evaluation, reports she was Seen in the emergency department 12/06/2023 diagnosed with diverticulitis, reports completed 5 day course of Augmentin and has been taking naproxen she continues to have pain and has been worsening, not tolerating oral intake, feeling pain to the right side of her abdomen as well and associated nausea. Plan: Labs, urinalysis, Medications Administered Discontinued Medications Generic Name Dose Route Start Last Admin Trade Name Freq PRN Reason Stop Dose Admin Iohexol 85 ml 12/12/23 00:54 12/12/23 00:54 Iohexol 350 Mg/Ml 100 Ml Infus..Btl IV 12/12/23 00:55 85 ml ONCE ONE Administration Ketorolac Tromethamine 15 mg 12/12/23 02:55 12/12/23 03:23 Ketorolac Tromethamine 15 Mg/Ml Vial IVPUSH 12/12/23 02:56 15 mg ONCE ONE Administration Medical Decision Making Medical Decision Making [facility] Narrative: Patient well-appearing. No acute distress. White count is normal. There has no significant shift. Patient's LFTs are normal. Lipase is normal no evidence for pancreatic disease. Urine was negative for infection. CT scan of the abdomen pelvis was repeated. I reviewed radiology's reading which showed mild diverticulitis. Will give patient additional 5 days worth of Augmentin. Have patient closely follow-up on an outpatient basis. Currently in stable condition Differential Diagnosis Differential Diagnoses: The differential diagnosis associated with the presentation includes Diverticulitis, abscess, perforation Admission/Observation Consideration of admission/observation: Escalation of care including admission/observation considered Lab Data MDM Lab Attestation statement: I reviewed the patient's lab results. 12/11/23 14:05 12/11/23 14:05 Labs: Lab Results 12/11/23 12/11/23 Range/Units 14:05 20:15 WBC 5.5 (4.8-10.8) X10*3/uL RBC 3.99 L (4.20-5.50) X10*6/uL Hgb 12.1 (12.0-16.0) g/dl Hct 36.4 L (37.0-47.0) % MCV 91.2 (80.0-98.0) fL MCH 30.3 (27.0-33.0) pg MCHC 33.2 (31.0-35.0) g/dl RDW 12.2 (11.0-16.0) % Plt Count 253 (160-400) X10*3/uL MPV 9.8 (9.4-12.3) fL Immature Gran % (Auto) 0.2 (0.0-0.4) % Neut % (Auto) 55.7 (45-73) % Lymph % (Auto) 31.1 (20-40) % [place] % (Auto) 7.6 (2-11) % Eos % (Auto) 4.7 H (0-4) % Baso % (Auto) 0.7 (0-2) % Lymph # (Auto) 1.7 (1.2-4.9) X10*3/uL [place] # (Auto) 0.4 (0.1-1.2) X10*3/uL Eos # (Auto) 0.3 (0.0-0.4) X10*3/uL Baso # (Auto) 0.0 (0.0-0.2) X10*3/uL Abs Immat Gran (auto) 0.01 (0.00-0.03) X10*3/uL Absolute Neuts (auto) 3.1 (2.0-8.3) x10*3/uL Absolute Nucleated RBC 0.000 (0.0-0.012) X10*3/uL Nucleated RBC % (auto) 0.0 (0.0-0.2) /100WBC Sodium 141 (135-145) mmol/L Potassium 4.1 (3.3-5.1) mmol/L Chloride 105 (96-108) mmol/L Carbon Dioxide 25 (22-29) mmol/L Anion Gap 15 (12-20) BUN 12 (9-16) mg/dL Creatinine 0.64 (0.5-1.4) mg/dL Estim Creat Clear Calc 99.6 Estimated GFR > 60 Random Glucose 94 (60-115) mg/dL Calcium 9.4 (8.4-10.2) mg/dL Total Bilirubin 0.3 (0.0-1.0) mg/dL AST 17 (5-31) U/L ALT 17 (0-31) U/L Alkaline Phosphatase 82 (39-117) U/L Total Protein 7.6 (6.5-8.0) g/dL Albumin 4.2 (3.5-5.0) g/dL Lipase 29 (8-78) U/L Urine Color Yellow Urine Appearance Clear Urine pH 6.0 (5.0-9.0) Ur Specific [place] <= 1.005 (1.005-1.025) Urine Protein Negative (Neg-Trace) mg/dL Urine Glucose (UA) Negative (Negative) mg/dL Urine Ketones Negative (Negative) mg/dL Urine Blood Negative (Negative) Urine Nitrite Negative (Negative) Ur Leukocyte Esterase Negative (Negative) Independent Interpretation I performed an independent interpretation of an: CT Scan (Mild diverticulitis) Radiology Impression Discussion of test interpretation with radiology: I have reviewed the radiologist's reading. External Record Review Previous radiology report was reviewed Discharge Plan Discharge Clinical Impression: Diverticulitis Patient Disposition: Home, Self-Care Instructions: Diverticulitis (ED) Prescriptions: New amoxicillin-pot clavulanate 875-125 mg tablet 1 tab PO BID Qty: 10 0RF No Action azithromycin 250 mg tablet See Rx Instructions .ROUTE .COMPLEX Qty: 6 0RF Rx Instructions: For 250 mg dose pack: take 500 mg today (day 1), then 250 mg for 4 days (days 2-5) prednisone 20 mg tablet 40 mg PO DAILY Qty: 10 0RF amoxicillin-pot clavulanate 875-125 mg tablet 1 tab PO Q12H 5 Days Qty: 10 0RF naproxen 500 mg tablet 500 mg PO BID PRN (Reason: pain) 7 Days Qty: 14 0RF Referrals: Roger Wu MD [Physician] - 12/15/23 Print Language: Macedonian
[2023-12-11 13:31] VITALS: BP 142/70; PULSE 64; RESP 18; TEMP 36.5; O2SAT 97; BMI 32.8
[2023-12-11 14:09] LABS: MANUAL DIFF FLAG NO
[2023-12-11 14:10] LABS: Basophils Percent Auto 0.7 % (0-2); Eosinophils Absolute Auto 0.3 X10*3/uL (0.0-0.4); Eosinophils Percent Auto 4.7 % (0-4); Hematocrit 36.4 % (37.0-47.0); Hemoglobin 12.1 g/dl (12.0-16.0); Imm Gran Abs Auto 0.01 X10*3/uL (0.00-0.03); Imm Gran Pct Auto 0.2 % (0.0-0.4); Lymphocytes Absolute Auto 1.7 X10*3/uL (1.2-4.9); Lymphocytes Percent Auto 31.1 % (20-40); Mean Corpuscular HGB Conc 33.2 g/dl (31.0-35.0); Mean Corpuscular Hemoglobin 30.3 pg (27.0-33.0); Mean Corpuscular Volume 91.2 fL (80.0-98.0); Mean Platelet Volume 9.8 fL (9.4-12.3); Monocytes Absolute Auto 0.4 X10*3/uL (0.1-1.2); Monocytes Percent Auto 7.6 % (2-11); Neutrophils Absolute Auto 3.1 x10*3/uL (2.0-8.3); Neutrophils Percent Auto 55.7 % (45-73); Platelet Count 253 X10*3/uL (160-400); Red Blood Count 3.99 X10*6/uL (4.20-5.50); Red Cell Distribution Width 12.2 % (11.0-16.0); White Blood Count 5.5 X10*3/uL (4.8-10.8)
[2023-12-11 14:36] LABS: Alanine Aminotransferase 17 U/L (0-31); Albumin Level 4.2 g/dL (3.5-5.0); Alkaline Phosphatase 82 U/L (39-117); Anion Gap 15 (12-20); Aspartate Amino Transferase 17 U/L (5-31); Bilirubin Total 0.3 mg/dL (0.0-1.0); Blood Urea Nitrogen 12 mg/dL (9-16); Calcium 9.4 mg/dL (8.4-10.2); Carbon Dioxide 25 mmol/L (22-29); Chloride 105 mmol/L (96-108); Creatinine Clr Calc Pharmacy 99.6; Estimated Glomerular Filt Rate > 60; Glucose Random 94 mg/dL (60-115); Lipase 29 U/L (8-78); Potassium 4.1 mmol/L (3.3-5.1); Sodium 141 mmol/L (135-145); Total Protein 7.6 g/dL (6.5-8.0)
[2023-12-11 20:01] VITALS: BP 130/86; PULSE 66; RESP 20; TEMP 36.1; O2SAT 97
[2023-12-11 20:20] LABS: Appearance Urine Clear; Color Urine Yellow; Glucose Urine UA Negative (Negative); Leukocyte Esterase Urine Negative (Negative); Nitrite Urine Negative (Negative); Specific Gravity - Urine <= 1.005 (1.005-1.025); Urine Blood Negative (Negative); Urine Ketones Negative (Negative); Urine Protein Negative (Neg-Trace)
[2023-12-11 23:00] VITALS: BP 134/77; PULSE 80; RESP 17; TEMP 36.2; O2SAT 97
[2023-12-12 00:18] VITALS: BP 110/55; PULSE 64; RESP 16; TEMP 36.8; O2SAT 97
[2023-12-12] MEDS: iohexoL 350 MG/ML 100 ML INFUS..BTL 85 ML IV (00:54)
[2023-12-12 02:45] VITALS: BP 105/55; PULSE 58; RESP 16; TEMP 36.7; O2SAT 97
[2023-12-12] MEDS: Ketorolac Tromethamine 15 MG/ML VIAL IVPUSH (03:23)
--- NOTE | 2023-12-12 03:23 | PC.NURSE ---
pt medicated per Mar for pain
[2023-12-12] MEDS: Amoxicillin/Potassium Clav 875 MG TABLET PO (05:20)
[2023-12-12 05:58] VITALS: BP 130/63; PULSE 77; RESP 16; TEMP 36.4; O2SAT 99
== END 2023-12-12 05:20 | disposition home or self-care (01) ==
PROVIDERS: Nurse Practitioner Family; Emergency Provider Emergency Medicine Emergency Medical Services
DX: K57.32 Diverticulitis of large intestine without perforation or abscess without bleeding (principal); R10.9 Unspecified abdominal pain
CPT/HCPCS: 36415; 74177; 80053; 81003; 83690; 85025; 96374; 99284; J1885; Q9967